=== PATIENT | male | born 1990 | race Caucasian/White ===

== ENCOUNTER 2025-04-27 12:59 | Emergency (ER) | payer OTHER ==
[~2025-04-27] VITALS: Ht 182.9 cm; Wt 76.0 kg
[2025-04-27 13:02] VITALS: O2SAT 100
[2025-04-27] MEDS: MORPHINE SULFATE 4 MG/ML INJ (FOR IV/IM USE) IV ONE (13:57)
[2025-04-27] MEDS: SODIUM CHLORIDE 0.9% 1,000 ML IV ONE (13:58)
[2025-04-27] MEDS: KETOROLAC 30MG/ML VIAL IV ONE (13:58)
[2025-04-27] MEDS: ONDANSETRON HCL 4MG/2ML INJ IV ONE (13:58)
[2025-04-27 14:20] LABS: BASOPHILS % 0.5 % (0.0-2.0); EOSINOPHILS % 0.3 % (0.0-5.0); HEMATOCRIT. 42.6 % (42.0-52.0); HEMOGLOBIN. 14.6 g/dL (14.0-18.0); LYMPHOCYTES % 22.0 % (20.0-50.0); MEAN PLATELET VOLUME 7.7 fl (7.4-10.4); MONOCYTES % 7.1 % (2.0-8.0); NEUTROPHILS % 70.1 % (40.0-76.0); PLATELET 282 x1000/uL (130-400); RED BLOOD CELL COUNT 4.93 mill/uL (4.7-6.1); RED CELL DISTRIBUTION WIDTH 13.5 % (11.6-14.6)
[2025-04-27 14:27] LABS: CREATININE 1.1 mg/dL (0.6-1.3); UREA NITROGEN BLOOD 14 mg/dL (9-23)
[2025-04-27 14:29] LABS: ASPARTATE AMINOTRANSFERASE 21 IU/L (<34); BILIRUBIN TOTAL 1.1 mg/dL (0.1-1.0)
[2025-04-27 14:30] LABS: PROTEIN TOTAL 7.6 g/dL (6.0-8.3)
[2025-04-27] MEDS: LORAZEPAM 2MG/ML UD SYRINGE IV SCH (15:45)
[2025-04-27] MEDS: TAMSULOSIN HCL 0.4MG SR CAPSULE PO SCH (16:22)
[2025-04-27 16:42] VITALS: BP 118/71; PULSE 82; RESP 15; TEMP 36.6; O2SAT 100
== END 2025-04-27 16:43 | disposition home or self-care (01) ==
LOC: ER 13:55
DX: R10.84 Generalized abdominal pain (principal); Z87.442 Personal history of urinary calculi; Z98.890 Other specified postprocedural states
CPT/HCPCS: 99285; 74176; 96374; 96375; 96361; 80053; 85025; 36415; J1885; J2405; J2270; J7030